=== PATIENT | female | born 1945 | race Caucasian/White ===

== ENCOUNTER 2017-04-08 10:58 | Emergency (ER) | payer OTHER, BC ==
[~2017-04-08] VITALS: Ht 160 cm; Wt 57.4 kg
[2017-04-08 12:41] LABS: POINT-OF-CARE METER ID UU13113747
[2017-04-08 13:43] VITALS: BP 141/77
== END 2017-04-08 13:46 | disposition home or self-care (01) ==
LOC: EME 10:58
PROVIDERS: Emergency Medicine
DX: T18.198A Other foreign object in esophagus causing other injury, initial encounter (principal); M50.323 Other cervical disc degeneration at C6-C7 level; I10 Essential (primary) hypertension
CPT/HCPCS: 70360; 82948; 99281; 99284